=== PATIENT | male | born 1970 ===

== ENCOUNTER 2018-02-21 00:28 | Emergency (ER) | payer OTHER ==
[2018-02-21] MEDS ORDERED: Albuterol-Ipratrop 3 mg / 0.5 (3 ml) UD IH STA (02:01)
[2018-02-21] MEDS ORDERED: Promethazine/Cod 6.25mg-10mg/5ml Syr UD PO STA (02:01)
--- NOTE | 2018-02-21 02:04 | ED PDOC ---
HPI: Influenza Time Seen by Provider: 02/21/18 01:34 Chief Complaint: Flu-like Symptoms Chief Complaint (Provider): fever History Per: Patient Exam Limitations: no limitations Onset/Duration Of Symptoms: Days (2) Symptoms include: fever, headache, bodyaches, cough, nasal congestion Additional complaint(s):: 47 y/o male presents for evaluation of fever x 2 days. Associated nasal congestion, cough, bodyaches. Has been taking theraflu, excedrin, and ibuprofen with little improvement. Denies nausea/vomiting, chest pain, shortness of breath, palpitations, abdominal pain, changes in bowel movements, recent travel, sick contacts. Last dose Ibuprofen taken 15:00. Past Medical History Reviewed: Historical Data, Nursing Documentation, Vital Signs Vital Signs: Last Vital Signs Temp 101.6 F H 02/21/18 00:38 Pulse 128 H 02/21/18 00:38 Resp 19 02/21/18 00:38 BP 115/76 02/21/18 00:38 Pulse Ox 96 02/21/18 00:38 - Medical History PMH: No Chronic Diseases - Surgical History Surgical History: No Surg Hx - Family History Family History: States: No Known Family Hx - Home Medications Home Medications: Ambulatory Orders Medication Instructions Recorded Fluticasone Nasal [Flonase] 1 actuation NS BID #1 bottle 02/21/18 Ibuprofen [Motrin Tab] 1 tab PO Q6 PRN #20 tab 02/21/18 Oseltamivir Cap [Tamiflu] 75 mg PO BID #9 cap 02/21/18 Promethazine/Codeine 5 ml PO Q8 PRN #75 ml 02/21/18 [Phenergan/Codeine Oral Syrup] - Allergies Allergies/Adverse Reactions: Allergies Allergy/AdvReac Type Severity Reaction Status Date / Time No Known Allergies Allergy Verified 02/21/18 00:41 Review of Systems ROS Statement: Except As Marked, All Systems Reviewed And Found Negative Constitutional: Positive for: Fever, Chills ENT: Positive for: Nose Congestion Respiratory: Positive for: Cough Physical Exam - Reviewed Nursing Documentation Reviewed: Yes Vital Signs Reviewed: Yes - Physical Exam Appears: Positive for: Well, Non-toxic, No Acute Distress Head Exam: Positive for: ATRAUMATIC, NORMAL INSPECTION, NORMOCEPHALIC Skin: Positive for: Normal Color Eye Exam: Positive for: Normal appearance ENT: Positive for: Nasal Congestion Cardiovascular/Chest: Positive for: Regular Rate, Rhythm Respiratory: Positive for: Normal Breath Sounds Gastrointestinal/Abdominal: Positive for: Normal Exam Back: Positive for: Normal Inspection Extremity: Positive for: Normal ROM Neurologic/Psych: Positive for: Alert, Oriented (x3) - ECG O2 Sat by Pulse Oximetry: 96 - Radiology X-Ray: Viewed By Dc X-Ray Interpretation: No Acute Disease - Progress ED Course And Treament: -ibuprofen PO -promethazine with codeine -duoneb -cxr -influenza Flu A+. Tamiflu dose given in ED On re-eval, patient states he is feeling better. Vitals improved Patient educated on findings, discharged with rx Flonase, Tamiflu, ibuprofen, Promethazine with codeine Advised fluids, rest Follow up PMD within 2-3 days Return precautions given Disposition - Clinical Impression Clinical Impression: Influenza - Patient ED Disposition Is Patient to be Admitted: No Counseled Patient/Family Regarding: Studies Performed, Diagnosis, Need For Followup, Rx Given - Disposition Referrals: [facility] [Outside] Disposition: Routine/Home Disposition Time: 04:11 Condition: IMPROVED Prescriptions: Fluticasone Nasal [Flonase] 1 actuation NS BID #1 bottle Ibuprofen [Motrin Tab] 1 tab PO Q6 PRN #20 tab PRN Reason: Fever >100.4 F Oseltamivir Cap [Tamiflu] 75 mg PO BID #9 cap Promethazine/Codeine [Phenergan/Codeine Oral Syrup] 5 ml PO Q8 PRN #75 ml PRN Reason: Cough Instructions: Flu Forms: [facility] ED School/Work Excuse Print Language: SWEDISH
[2018-02-21] MEDS ORDERED: Promethazine/Cod 6.25mg-10mg/5ml Syr UD ONE (02:14)
[2018-02-21] MEDS ORDERED: Albuterol-Ipratrop 3 mg / 0.5 (3 ml) UD ONE (02:15)
[2018-02-21 03:02] VITALS: RESP 18
[2018-02-21 04:14] VITALS: BP 125/82; PULSE 93; TEMP 98.8; O2SAT 97
--- NOTE | 2018-02-21 08:01 | RAD ---
Date of service: 02/21/2018 HISTORY: fever, cough COMPARISON: No prior. TECHNIQUE: Chest PA and lateral FINDINGS: LUNGS: Left infrahilar probable peribronchial thickening-retrocardiac per frontal view not well appreciated on lateral view. Bronchiolar thickening of focal bronchitis/radiographically early small focal developing infiltrate are considerations. PLEURA: No significant pleural effusion identified. No pneumothorax apparent. CARDIOVASCULAR: No aortic atherosclerotic calcification present. Normal cardiac size. No pulmonary vascular congestion. OSSEOUS STRUCTURES: Thoraco lumbar spondylosis. VISUALIZED UPPER ABDOMEN: Normal. OTHER FINDINGS: None. IMPRESSION: Left infrahilar bronchial inflammatory like thickening focal bronchitis mild bronchiectasis here versus radiographically early infiltrate here considerations. Clinical follow-up recommended. Comments: Study marked for PA review .
== END 2018-02-21 04:27 | disposition home or self-care (01) ==
LOC: H.ER 00:28
DX: J11.1 Influenza due to unidentified influenza virus with other respiratory manifestations (principal)